=== PATIENT | female | born 1935 ===

== ENCOUNTER 2018-12-09 08:21 | Outpatient (CLI) | payer OTHER ==
[~2018-12-09] VITALS: Ht 152.4 cm; Wt 77.1 kg
[2018-12-09] MEDS ORDERED: ZITHROMAX500 MG PO (10:30)
[2018-12-09] MEDS ORDERED: FLONASE16 GM NASAL (10:30)
== END 2018-12-09 08:40 | disposition home or self-care (01) ==
LOC: OFIC 805 08:21
DX: J31.0 Chronic rhinitis (principal); H69.90 Unspecified Eustachian tube disorder, unspecified ear; J34.2 Deviated nasal septum; R05 Cough